=== PATIENT | female | born 1935 | race Caucasian/White ===

== ENCOUNTER → 2022-09-19 | Outpatient (REF) | payer MEDICARE, BC, MEDICAID ==
[~2022-09-19] MED LIST: ALLEGRA 180MG180 MG PO; AMITRIPTYLINE H25 M1 PO; AMOXICILLIN 25250 MG PO; B-121000 MCG PO; BENADRYL PO; CALCIUM 600 + V1 TA1 PO; CALCIUM 600MG+D1 TAB; CALCIUM 600MG+D1 TAB PO; CEFTIN 250250 MG/TAB PO; CELEBREX 200MG200 MG PO; COLACE 100100 MG/CAP PO; COLESTID 1GM1 G PO; COMPAZINE 110 MG/TAB PO; CORRECTIVE LAXAT5 MG PO; COUMADIN 5MG5 MG/TAB; DOXYCYCLINE 10100 MG PO; DYNACIN100 M1 PO; EC-NAPROSYN500 MG PO; FEMARA 2.5MG2.5 MG PO; FEMARA PO; FERROUS SULFATE65 MG PO; FERROUSAL325 MG PO; FIBER TABLETS625 MG PO; FLAX OIL1000 MG PO; GLUCOPHAGE1000 MG PO; GLUCOPHAGE500 MG PO; GLUCOPHAGE500 MG/TAB PO; GLUCOTROL 5M5 MG/TAB PO; GLUCOTROL XL5 MG/TAB PO; GRALISE300 MG PO; IMODIUM 2MG CAPS2 MG PO; KEPPRA 500MG500 MG PO; LASIX40 MG PO; LIPITOR20 MG PO; LISINOPRIL10 MG PO; LOMOTIL 0.025 M1 TAB PO; LORTAB 7.5/5001 TAB PO; MINOCYCLIN100 MG/CAP PO; MIRALAX PA17 GM/Dose PO; MULTI-VITAMIN W1 TA1 PO; MULTIPLE VITAMI1 CAP PO; MYCOSTATIN100000 U/G TP; NIGHT TIME SLEE25 MG PO; NORCO 325 MG-51 TAB PO; NORCO 325 MG-7.1 TAB PO; NORVASC 5MG5 MG/TAB PO; NOVOLOG 100U100 U/M1 SQ; OYSTERCAL-D 5001 TAB PO; PAMELOR 25MG25 MG PO; PEPCID 20MG TAB20 MG PO; PRINIVIL20 MG; PRINIVIL20 MG PO; PROAIR HFA0.09 MG/AC IH; PROCHLORPERAZIN10 MG PO; RESTORIL 1515 MG/CAP PO; RESTORIL15 MG PO; TYLENOL 325MG325 MG PO; ULTRAM 50MG TAB50 MG PO; ULTRAM50 MG PO; VANCOCIN HCL1 GM IV; VITAMIN B-1000 MCG/T PO; VITAMIN B12500 MCG PO; VITAMIN D 1001000 IU PO; VITAMIN D31000 I1 PO; VITAMIN D3400 IU PO; VITAMINC1000TA PO; WARFARIN SOD5 MG PO; XARELTO20 MG PO; ZANTAC 300300 MG; ZANTAC 300300 MG PO; ZANTAC150 MG PO; ZITHROMAX 250M250 MG PO; ZOCOR 40MG40 MG PO; ZOFRAN 4MG T4 MG/TAB PO; ZOFRAN ODT4 MG PO; ZOLOFT 50MG50 MG; [UNRECOGNIZED DRUG - CODE] PO; [UNRECOGNIZED DRUG - OTHER]; [UNRECOGNIZED DRUG - OTHER]
[2022-09-19 20:48] LABS: COLLECTION METHOD CATHETER
[2022-09-19 21:00] LABS: URINE APPEARANCE Hazy (CLEAR/HAZY); URINE BLOOD Negative (NEGATIVE); URINE COLOR Yellow (YELLOW); URINE GLUCOSE Negative (NEGATIVE); URINE KETONE Negative (NEGATIVE); URINE NITRATE Negative (NEGATIVE); URINE PROTEIN(semi-quant) Negative (NEGATIVE); URINE UROBILINOGEN 0.2 E.U/dL (0.2-1.0)
[2022-09-19 21:18] LABS: MUCOUS Present (NOT PRESENT); URINE BACTERIA Many /hpf (NONE SEEN); URINE RBC None Seen /hpf (0-2)
== END ==
LOC: ZCOL.LAB 17:05
PROVIDERS: Family Medicine
DX: N39.0 Urinary tract infection, site not specified (principal)

== ENCOUNTER → 2022-10-04 | Outpatient (CLI) | payer MEDICARE, BC, MEDICAID ==
[2022-10-04 15:48] LABS: COLLECTION METHOD CATHETER
[2022-10-04 16:00] LABS: MUCOUS Present (NOT PRESENT); PH 5.5 (5-8); SQUAMOUS EPITHELIAL None Seen /hpf (0-10); URINE APPEARANCE Clear (CLEAR/HAZY); URINE BACTERIA None Seen /hpf (NONE SEEN); URINE BLOOD Negative (NEGATIVE); URINE COLOR Yellow (YELLOW); URINE GLUCOSE Negative (NEGATIVE); URINE KETONE Negative (NEGATIVE); URINE NITRATE Negative (NEGATIVE); URINE PROTEIN(semi-quant) Negative (NEGATIVE); URINE RBC 0-2 /hpf (0-2); URINE UROBILINOGEN 0.2 (NEGATIVE); URINE WBC 0-2 /hpf (0-2)
== END ==
LOC: ZCOL.LAB 15:40
PROVIDERS: Family Medicine
DX: N39.0 Urinary tract infection, site not specified (principal)